=== PATIENT | female | born 1935 | race Caucasian/White ===

== ENCOUNTER 2024-02-11 11:15 | Day surgery (SDC) | payer MEDICARE, OTHER ==
[2024-02-07 12:10] LABS: BASOPHILS % (AUTO) 0.9 % (0-1); EOSINOPHILS # (AUTO) 0.2 X10'3 (0-0.9); EOSINOPHILS % (AUTO) 3.1 % (0-6); HEMATOCRIT 40.1 % (35.0-45.0); HEMOGLOBIN 13.5 g/dl (12.0-16.0); LYMPHOCYTES # (AUTO) 1.6 X10'3 (1.1-4.8); LYMPHOCYTES % (AUTO) 29.6 % (21-51); MEAN CORPUSCULAR HEMOGLOBIN 31.4 PG (27.0-31.0); MEAN CORPUSCULAR HGB CONC 33.6 g/dL (33.0-36.5); MEAN CORPUSCULAR VOLUME 93.4 FL (78-98); MEAN PLATELET VOLUME 7.4 FL (7.4-10.4); MONOCYTES # (AUTO) 0.5 X10'3 (0-0.9); MONOCYTES % (AUTO) 9.5 % (2-12); NEUTROPHILS # (AUTO) 3.1 X10'3 (1.8-7.7); NEUTROPHILS % (AUTO) 56.9 % (42-75); PLATELET COUNT 273 X10'3 (140-440); WHITE BLOOD COUNT 5.4 X10'3 (4.5-11.0)
[2024-02-07 12:17] LABS: APTT 26 SECONDS (22-32); PROTHROMBIN TIME 10.3 SECONDS (9.0-12.0)
[2024-02-07 12:20] LABS: ALBUMIN 4.1 G/DL (3.4-5.0); ANION GAP 6 (8-16); BLOOD UREA NITROGEN 14 MG/DL (7-18); BUN/CREATININE RATIO 17.3 (10.0-20.0); CALCIUM 8.9 MG/DL (8.5-10.1); CHLORIDE 104 MMOL/L (99-107); CHOLESTEROL 201 MG/DL (0-200); CREATININE 0.81 MG/DL (0.40-0.90); GLUCOSE 104 MG/DL (70-104); HDL CHOLESTEROL 50 MG/DL (35-60); LDL CHOLESTEROL 104 MG/DL (50-100); POTASSIUM 4.3 MMOL/L (3.5-5.1); SODIUM 138 MMOL/L (135-145); TOTAL CARBON DIOXIDE 27.8 MMOL/L (24-32); TRIGLYCERIDES 235 MG/DL (20-135); eGFR 67 ML/MIN
[2024-02-11] VITALS (15 sets, daily range): BP systolic 60–148; BP diastolic 26–89; PULSE 48–85; RESP 16; TEMP 97.8; O2SAT 92–98
[~2024-02-11] VITALS: Ht 154.9 cm; Wt 84.8 kg
[2024-02-11] MEDS ORDERED: ASPI-955 PO (12:35)
[2024-02-11] MEDS ORDERED: ACET-890 PO (12:35)
[2024-02-11] MEDS ORDERED: ACET-1025 PO (12:35)
[2024-02-11] MEDS ORDERED: ATOR40TA72 PO (12:35)
[2024-02-11] MEDS ORDERED: OXYB-58 PO (12:35)
[2024-02-11] MEDS: LORazepam 0.5 MG tablet PO PRN (12:52)
[2024-02-11] MEDS: diphenhydrAMINE 25mg capsule PO PRN (12:53)
[2024-02-11] MEDS: normal saline 1,000 ML IV SCH (12:55)
[2024-02-11] MEDS ORDERED: midazolam 1 mg/ML 2ml injection ONE (13:42)
[2024-02-11] MEDS ORDERED: verapamil 2.5 mg/ml inj IV ONE (13:42)
[2024-02-11] MEDS ORDERED: heparin 1,000unit/ml 10ml vial 10 ML ONE (13:42)
[2024-02-11] MEDS ORDERED: LIDOcaine 1% (10mg/ml) 2ml vial ONE (13:42)
[2024-02-11] MEDS ORDERED: iohexol 350MG/ML 100ml bottle IV ONE ×2 (13:42→15:15)
[2024-02-11] MEDS ORDERED: fentaNYL/PF 50MCG/1 ML 2ML syringe ONE (13:42)
[2024-02-11] MEDS ORDERED: nitroGLYCERIN 500mcg/5mL D5W 5 ML IV ONE (13:43)
[2024-02-11] MEDS ORDERED: LIDOcaine 1% 30ml preserv. free vial ONE (14:20)
[2024-02-11 14:37] LABS: ISTAT HGB ART 12.6 g/dl (12.0-16.0); ISTAT Hct ART 37 %PCV (35-45); ISTAT O2 SATURATION ARTERIAL 88 % (95-98); ISTAT SOURCE ART
[2024-02-11] MEDS ORDERED: iohexol 350 MG/ML 50ML vial IV ONE (15:12)
[2024-02-11] MEDS ORDERED: aspirin 325mg tablet ONE (15:29)
[2024-02-11] MEDS ORDERED: clopidogrel 300mg tablet ONE (15:29)
[2024-02-11] MEDS ORDERED: HYDROcodone/acetaminophen 5mg/325mg tablet PO PRN (16:30)
[2024-02-11] MEDS ORDERED: HYDROcodone/acetaminophen 10/325mg tab PO PRN (16:30)
[2024-02-11] MEDS ORDERED: CLOP75TA34 PO (16:40)
[2024-02-11] MEDS: ondansetron/PF 4mg/2ml inj ONE (18:27)
[2024-02-12 06:25] LABS: ISTAT HGB MIX 12.6 g/dl (12.0-16.0); ISTAT Hct MIX 37 %PCV (35-45); ISTAT O2 SATURATION MIX VENOUS 55 % (60-80); ISTAT SOURCE VEN
== END 2024-02-11 20:10 | disposition home or self-care (01) ==
LOC: SSTAY O 11:15
PROVIDERS: ATTEND Student in an Organized Health Care Education/Training Program
DX: I35.0 Nonrheumatic aortic (valve) stenosis (principal); I25.10 Atherosclerotic heart disease of native coronary artery without angina pectoris; I10 Essential (primary) hypertension; E78.00 Pure hypercholesterolemia, unspecified; I48.91 Unspecified atrial fibrillation; I25.2 Old myocardial infarction; Z79.82 Long term (current) use of aspirin; Z79.899 Other long term (current) drug therapy
CPT/HCPCS: 36415; 76937; 80048; 80061; 82803; 82948; 85014; 85025; 85610; 85730; 93005; 93460; 99152; 99153; C1874; C9600; J1644; J2250; J2405; J3010; J3490; J7030; Q0163; Q9967; A4615; A6258; A6402; A6449; C1725; C1751; C1760; C1769; C1894